=== PATIENT | male | born 1985 | race Caucasian/White ===

== ENCOUNTER → 2019-07-09 | Outpatient (CLI) | payer MEDICARE ==
[2019-07-09 10:54] LABS: BASO % 0.4 % (0.0-1.0); EOS # 0.1 10^3/uL (0.0-0.50); EOS % 2.5 % (0.0-3.0); HEMATOCRIT 44.3 % (42.0-52.0); HEMOGLOBIN 14.9 g/dl (13.5-17.5); LYMPH # 1.6 10^3/uL (1.5-4.5); MEAN CORPUSCULAR HEMOGLOBIN 30.7 pg (27.0-33.0); MEAN CORPUSCULAR HGB CONC 33.6 g/dl (32.0-36.5); MEAN CORPUSCULAR VOLUME 91.2 fl (80.0-96.0); MONO # 0.6 10^3/uL (0.0-0.8); MONO % 11.7 % (0.0-5.0); NEUTROPHILS # 2.9 10^3/uL (1.8-7.7); PLATELET COUNT, AUTOMATED 264 10^3/uL (150-450); RED BLOOD COUNT 4.86 10^6/uL (4.30-6.10); WHITE BLOOD COUNT 5.3 10^3/uL (4.0-10.0)
[2019-07-09 11:20] LABS: HEMOGLOBIN A1c 5.2 %
[2019-07-09 11:27] LABS: ALBUMIN 3.8 GM/DL (3.2-5.2); ALT/SGPT 157 U/L (12-78); BILIRUBIN,TOTAL 0.4 MG/DL (0.2-1.0); BLOOD UREA NITROGEN 12 MG/DL (7-18); CALCIUM LEVEL 8.8 MG/DL (8.5-10.1); CARBON DIOXIDE LEVEL 32 MEQ/L (21-32); CHLORIDE LEVEL 104 MEQ/L (98-107); CHOLESTEROL LEVEL 260 MG/DL (<200); CHOLESTEROL RISK RATIO 8.125 (<5); CREATININE FOR GFR 0.98 MG/DL (0.70-1.30); FREE T4 0.84 NG/DL (0.76-1.46); GLOMERULAR FILTRATION RATE > 60.0 (>60); GLUCOSE, FASTING 101 MG/DL (70-100); HDL CHOLESTEROL 32 MG/DL (>40); NON-HDL-C 228 MG/DL; POTASSIUM SERUM 4.3 MEQ/L (3.5-5.1); SODIUM LEVEL 141 MEQ/L (136-145); TOTAL PROTEIN 7.5 GM/DL (6.4-8.2); TRIGLYCERIDES LEVEL 445 MG/DL (<150)
== END ==
LOC: M LAB 10:27
PROVIDERS: ATTEND Physician Assistant Medical
DX: E66.9 Obesity, unspecified (principal); Z13.220 Encounter for screening for lipoid disorders; R03.0 Elevated blood-pressure reading, without diagnosis of hypertension

== ENCOUNTER → 2019-12-01 | Outpatient (CLI) | payer MEDICARE | LOC: M PLALAB 14:21 | PROVIDERS: ATTEND Physician Assistant Medical | DX: R94.5 Abnormal results of liver function studies (principal) ==

== ENCOUNTER → 2019-12-01 | Outpatient (REF) | payer MEDICARE ==
[2019-12-03 17:43] LABS: HEPATITIS B SURFACE ANTIBODY NEGATIVE (POSITIVE); HEPATITIS B SURFACE ANTIGEN NEGATIVE (NEGATIVE); HEPATITIS C VIRUS ABY INDEX < 0.0 INDEX (<0.8)
[2019-12-06 14:07] LABS: HEPATITIS A IgG TOTAL Positive (Negative); HEPATITIS C QUANTITATION HCV Not Detected IU/mL (.)
== END ==
LOC: M SFHCPLAZ 13:56
PROVIDERS: ATTEND Physician Assistant Medical
DX: R94.5 Abnormal results of liver function studies (principal); Z13.220 Encounter for screening for lipoid disorders

== ENCOUNTER 2020-02-29 14:11 | Emergency (ER) | payer MEDICARE, MEDICAID ==
[~2020-02-29] VITALS: Ht 175.3 cm; Wt 103.5 kg
[2020-02-29] MEDS ORDERED: VENL150C43 (14:17)
[2020-02-29] MEDS ORDERED: LIDOCAINE 2% MDV 20 ML VIAL SC ONE (14:30)
[2020-02-29] MEDS ORDERED: [UNRECOGNIZED DRUG - OTHER] IM ONE (14:30)
[2020-02-29] MEDS ORDERED: DERMABOND TOPICAL SKIN ADHESIVE TOP ONE (15:00)
[2020-02-29 15:03] VITALS: BP 134/95
== END 2020-02-29 15:13 | disposition home or self-care (01) ==
LOC: M ED 14:11
DX: S61.220A Laceration with foreign body of right index finger without damage to nail, initial encounter (principal); W26.8XXA Contact with other sharp object(s), not elsewhere classified, initial encounter; Y92.019 Unspecified place in single-family (private) house as the place of occurrence of the external cause

== ENCOUNTER → 2020-04-28 | Outpatient (REF) | payer MEDICARE, MEDICAID ==
[~2020-04-28] MED LIST: VENL150C43
[2020-04-28 18:04] LABS: ALBUMIN 4.2 GM/DL (3.2-5.2); ALT/SGPT 90 U/L (12-78); BILIRUBIN,TOTAL 0.5 MG/DL (0.2-1.0); BLOOD UREA NITROGEN 12 MG/DL (7-18); CALCIUM LEVEL 9.1 MG/DL (8.5-10.1); CARBON DIOXIDE LEVEL 29 MEQ/L (21-32); CHLORIDE LEVEL 104 MEQ/L (98-107); CHOLESTEROL LEVEL 241 MG/DL (<200); CHOLESTEROL RISK RATIO 7.774 (<5); CREATININE FOR GFR 0.97 MG/DL (0.70-1.30); GLOMERULAR FILTRATION RATE > 60.0 (>60); GLUCOSE, FASTING 85 MG/DL (70-100); HDL CHOLESTEROL 31 MG/DL (>40); NON-HDL-C 210 MG/DL; POTASSIUM SERUM 4.7 MEQ/L (3.5-5.1); SODIUM LEVEL 140 MEQ/L (136-145); TOTAL PROTEIN 8.2 GM/DL (6.4-8.2); TRIGLYCERIDES LEVEL 631 MG/DL (<150)
== END ==
LOC: M SFHCPLAZ 14:42
DX: Z00.00 Encounter for general adult medical examination without abnormal findings (principal); Z79.899 Other long term (current) drug therapy
CPT/HCPCS: 36415; 80053; 80061; 83036; G0463

== ENCOUNTER → 2020-05-12 | Outpatient (CLI) | payer MEDICARE, MEDICAID ==
[2020-05-12 14:14] LABS: INR 0.99; PROTHROMBIN TIME 12.8 SECONDS (11.8-14.0)
[2020-05-12 14:18] LABS: THYROID STIMULATING HORMONE 1.57 uIU/ML (0.358-3.740)
[2020-05-13 17:07] LABS: ANTI-MITOCHONDRIAL ANTIBODY <20.0 Units (0.0-20.0); ANTINUCLEAR ANTIBODIES DIRECT Negative (Negative); CERULOPLASMIN 21.7 mg/dL (16.0-31.0); HEPATITIS BE ANTIGEN Negative (Negative); LIVER-KIDNEY MICROSOMAL ABY <20.1 Units (0.0-20.0)
== END ==
LOC: M PLALAB 10:21
PROVIDERS: ATTEND Internal Medicine
DX: R74.0 Nonspecific elevation of levels of transaminase and lactic acid dehydrogenase [LDH] (principal); E78.1 Pure hyperglyceridemia; Z79.899 Other long term (current) drug therapy

== ENCOUNTER → 2020-12-22 | Outpatient (CLI) | payer MEDICARE, MEDICAID ==
--- NOTE | 2020-12-22 18:11 | REPPI ---
INDICATION: M25.531 WRIST PAIN, RIGHT. COMPARISON: None. TECHNIQUE: Four views. FINDINGS: Four views of the right wrist demonstrate overall normal mineralization. Joint spaces are preserved. Alignment is normal. No fracture or subluxation is seen. There is a small bone island in the distal radius noted incidentally. IMPRESSION: Normal right wrist radiographs. <Electronically signed by Shivam Silva > 12/22/20 [id number]
== END ==
LOC: M PLAIMG 14:40
PROVIDERS: ATTEND Internal Medicine
DX: M25.531 Pain in right wrist (principal); Z23 Encounter for immunization
CPT/HCPCS: 73110; 90682; G0463

== ENCOUNTER → 2021-01-03 | Outpatient (CLI) | payer MEDICARE, MEDICAID ==
[2021-01-03 09:47] LABS: HEMATOCRIT 43.7 % (42.0-52.0); HEMOGLOBIN 14.6 g/dl (13.5-17.5); MEAN CORPUSCULAR HEMOGLOBIN 29.6 pg (27.0-33.0); MEAN CORPUSCULAR HGB CONC 33.4 g/dl (32.0-36.5); MEAN CORPUSCULAR VOLUME 88.5 fl (80.0-96.0); PLATELET COUNT, AUTOMATED 328 10^3/uL (150-450); RED BLOOD COUNT 4.94 10^6/uL (4.30-6.10); WHITE BLOOD COUNT 5.1 10^3/uL (4.0-10.0)
[2021-01-03 10:34] LABS: ALBUMIN 4.1 GM/DL (3.2-5.2); ALT/SGPT 94 U/L (12-78); BILIRUBIN,TOTAL 0.5 MG/DL (0.2-1.0); BLOOD UREA NITROGEN 16 MG/DL (7-18); CALCIUM LEVEL 9.1 MG/DL (8.5-10.1); CARBON DIOXIDE LEVEL 28 MEQ/L (21-32); CHLORIDE LEVEL 105 MEQ/L (98-107); CHOLESTEROL LEVEL 202 MG/DL (<200); CHOLESTEROL RISK RATIO 5.941 (<5); CREATININE FOR GFR 1.01 MG/DL (0.70-1.30); GLOMERULAR FILTRATION RATE > 60.0 (>60); GLUCOSE, FASTING 107 MG/DL (70-100); HDL CHOLESTEROL 34 MG/DL (>40); IRON (FE) 140 UG/DL (65-175); LDL CHOLESTEROL 131 MG/DL (<100); NON-HDL-C 168 MG/DL; PERCENT SATURATION 37.4 % (19.7-50.0); POTASSIUM SERUM 4.6 MEQ/L (3.5-5.1); SODIUM LEVEL 139 MEQ/L (136-145); TOTAL IRON BINDING CAPACITY 374 UG/DL (250-450); TOTAL PROTEIN 7.5 GM/DL (6.4-8.2); TRIGLYCERIDES LEVEL 183 MG/DL (<150)
[2021-01-03 10:35] LABS: FERRITIN 146 NG/ML (26-388)
[2021-01-04 20:11] LABS: ANTI-MITOCHONDRIAL ANTIBODY <20.0 Units (0.0-20.0); ANTINUCLEAR ANTIBODIES DIRECT Negative (Negative); CERULOPLASMIN 24.2 mg/dL (16.0-31.0)
== END ==
LOC: M LAB 09:05
PROVIDERS: ATTEND Internal Medicine
DX: R74.01 Elevation of levels of liver transaminase levels (principal); E78.1 Pure hyperglyceridemia

== ENCOUNTER 2021-02-12 23:51 | Emergency (ER) | payer MEDICARE, MEDICAID ==
[~2021-02-12] VITALS: Ht 175.3 cm; Wt 104.1 kg
[2021-02-12 23:52] VITALS: BP 168/93
[2021-02-12] MEDS ORDERED: FENO48TA7 (23:58)
[2021-02-12] MEDS ORDERED: LOSA25TA14 (23:58)
[2021-02-13] MEDS ORDERED: methocarbamoL 750 MG TAB PO ONE (00:50)
[2021-02-13] MEDS ORDERED: KETOROLAC 60MG 2ML VIAL IM ONE (00:50)
[2021-02-13] MEDS ORDERED: ROBA750T4 PO (00:54)
[2021-02-13] MEDS ORDERED: KETO10TAB PO (00:56)
== END 2021-02-13 01:18 | disposition home or self-care (01) ==
LOC: M ED 23:51
DX: M54.5 Low back pain (principal); I10 Essential (primary) hypertension; E78.5 Hyperlipidemia, unspecified; F33.9 Major depressive disorder, recurrent, unspecified; Z79.899 Other long term (current) drug therapy
CPT/HCPCS: 96372; 99282; J1885

== ENCOUNTER → 2022-01-14 | Outpatient (CLI) | payer MEDICARE, MEDICAID ==
[~2022-01-14] MED LIST changes: +FENO48TA8; +KETO10TAB PO; +LOSA25TA13; +ROBA750T4 PO
[2022-01-14 10:46] LABS: HEMOGLOBIN A1c 5.1 %
[2022-01-14 10:52] LABS: ALBUMIN 3.8 GM/DL (3.2-5.2); ALT/SGPT 84 U/L (12-78); BILIRUBIN,TOTAL 0.4 MG/DL (0.2-1.0); BLOOD UREA NITROGEN 13 MG/DL (7-18); CALCIUM LEVEL 8.8 MG/DL (8.5-10.1); CARBON DIOXIDE LEVEL 27 MEQ/L (21-32); CHLORIDE LEVEL 107 MEQ/L (98-107); CHOLESTEROL LEVEL 189 MG/DL (<200); CHOLESTEROL RISK RATIO 6.096 (<5); GLOMERULAR FILTRATION RATE > 60.0 (>60); GLUCOSE, FASTING 107 MG/DL (70-100); HDL CHOLESTEROL 31 MG/DL (>40); LDL CHOLESTEROL 116 MG/DL (<100); NON-HDL-C 158 MG/DL; POTASSIUM SERUM 4.1 MEQ/L (3.5-5.1); SODIUM LEVEL 139 MEQ/L (136-145); TOTAL PROTEIN 7.7 GM/DL (6.4-8.2); TRIGLYCERIDES LEVEL 210 MG/DL (<150)
== END ==
LOC: M LAB 09:22
PROVIDERS: ATTEND Student in an Organized Health Care Education/Training Program
DX: Z00.00 Encounter for general adult medical examination without abnormal findings (principal)

== ENCOUNTER → 2022-08-16 | Outpatient (CLI) | payer MEDICARE, MEDICAID ==
[2022-08-16 14:06] LABS: ALBUMIN 3.9 GM/DL (3.2-5.2); ALT/SGPT 65 U/L (12-78); BILIRUBIN,TOTAL 0.4 MG/DL (0.2-1.0); BLOOD UREA NITROGEN 15 MG/DL (7-18); CALCIUM LEVEL 9.2 MG/DL (8.5-10.1); CARBON DIOXIDE LEVEL 29 MEQ/L (21-32); CHLORIDE LEVEL 105 MEQ/L (98-107); CHOLESTEROL LEVEL 182 MG/DL (<200); CHOLESTEROL RISK RATIO 6.066 (<5); CREATININE FOR GFR 0.92 MG/DL (0.70-1.30); GLOMERULAR FILTRATION RATE > 60.0 (>60); GLUCOSE, FASTING 103 MG/DL (70-100); HDL CHOLESTEROL 30 MG/DL (>40); LDL CHOLESTEROL 85 MG/DL (<100); NON-HDL-C 152 MG/DL; POTASSIUM SERUM 4.7 MEQ/L (3.5-5.1); SODIUM LEVEL 138 MEQ/L (136-145); TOTAL PROTEIN 7.7 GM/DL (6.4-8.2); TRIGLYCERIDES LEVEL 334 MG/DL (<150)
[2022-08-16 15:31] LABS: HEMOGLOBIN A1c 5.2 %
== END ==
LOC: M PLALAB 10:12
PROVIDERS: ATTEND Student in an Organized Health Care Education/Training Program
DX: Z13.1 Encounter for screening for diabetes mellitus (principal); K76.0 Fatty (change of) liver, not elsewhere classified; E78.1 Pure hyperglyceridemia

== ENCOUNTER → 2023-04-07 | Outpatient (CLI) | payer MEDICARE, MEDICAID ==
[2023-04-07 09:49] LABS: HEMOGLOBIN A1c 5.1 % (4.0-6.0)
[2023-04-07 09:55] LABS: ALBUMIN 3.7 G/DL (3.2-5.2); ALKALINE PHOSPHATASE 73 U/L (46-116); ALT/SGPT 152 U/L (7.0-40); AST/SGOT 44 U/L (<34); BILIRUBIN,TOTAL 0.5 MG/DL (0.3-1.2); BLOOD UREA NITROGEN 21 MG/DL (9-23); CALCIUM LEVEL 8.9 MG/DL (8.5-10.1); CARBON DIOXIDE LEVEL 26 MMOL/L (20-31); CHLORIDE LEVEL 105 MMOL/L (98-107); CHOLESTEROL LEVEL 215 MG/DL (<200); CHOLESTEROL RISK RATIO 6.39 (<5); GLOMERULAR FILTRATION RATE > 60.0 (>60); GLUCOSE, FASTING 109 MG/DL (60-100); HDL CHOLESTEROL 33.6 MG/DL (>40); LDL CHOLESTEROL 121.4 MG/DL (<100); NON-HDL-C 181.4 MG/DL; POTASSIUM SERUM 4.3 MMOL/L (3.5-5.1); SODIUM LEVEL 138 MMOL/L (136-145); TRIGLYCERIDES LEVEL 300 MG/DL (<150)
[2023-04-07 09:57] LABS: THYROID STIMULATING HORMONE 1.046 uIU/ML (0.55-4.78)
== END ==
LOC: M LAB 08:55
PROVIDERS: ATTEND Student in an Organized Health Care Education/Training Program
DX: E78.1 Pure hyperglyceridemia (principal); I10 Essential (primary) hypertension; Z13.1 Encounter for screening for diabetes mellitus; Z68.32 Body mass index [BMI] 32.0-32.9, adult; Z79.899 Other long term (current) drug therapy

== ENCOUNTER → 2023-04-18 | Outpatient (CLI) | payer MEDICARE, MEDICAID ==
[2023-04-18 09:25] LABS: HEMATOCRIT 43.7 % (42.0-52.0); MEAN CORPUSCULAR HEMOGLOBIN 30.5 pg (27.0-33.0); MEAN CORPUSCULAR HGB CONC 34.3 g/dl (32.0-36.5); PLATELET COUNT, AUTOMATED 327 10^3/uL (150-450); RED BLOOD COUNT 4.91 10^6/uL (4.30-6.10); WHITE BLOOD COUNT 5.1 10^3/uL (4.0-10.0)
[2023-04-18 10:11] LABS: HEPATITIS B SURFACE ANTIGEN NEGATIVE (NEGATIVE)
[2023-04-18 10:32] LABS: HEPATITIS C VIRUS ABY INDEX < 0.0 INDEX (<0.8)
[2023-04-19 16:08] LABS: HEPATITIS A IgG TOTAL Positive (Negative); HEPATITIS C QUANTITATION HCV Not Detected IU/mL (.)
== END ==
LOC: M LAB 08:55
PROVIDERS: ATTEND Student in an Organized Health Care Education/Training Program
DX: R74.01 Elevation of levels of liver transaminase levels (principal); Z79.899 Other long term (current) drug therapy

== ENCOUNTER → 2023-05-02 | Outpatient (CLI) | payer OTHER, MEDICAID | LOC: M RAD 06:20 | PROVIDERS: ATTEND Student in an Organized Health Care Education/Training Program | DX: R74.01 Elevation of levels of liver transaminase levels (principal) ==

== ENCOUNTER → 2023-08-03 | Outpatient (CLI) | payer OTHER, MEDICAID ==
[2023-08-03 12:03] LABS: ALBUMIN 3.5 G/DL (3.2-5.2); BILIRUBIN,DIRECT 0.1 MG/DL (<0.4); BILIRUBIN,TOTAL 0.5 MG/DL (0.3-1.2); TOTAL PROTEIN 7.1 G/DL (5.7-8.2)
== END ==
LOC: M LAB 11:09
PROVIDERS: ATTEND Student in an Organized Health Care Education/Training Program
DX: K76.0 Fatty (change of) liver, not elsewhere classified (principal)

== ENCOUNTER → 2023-12-03 | Outpatient (CLI) | payer OTHER, MEDICAID ==
[2023-12-03 09:39] LABS: ALBUMIN 3.8 G/DL (3.2-5.2); BILIRUBIN,DIRECT 0.2 MG/DL (<0.4); BILIRUBIN,TOTAL 0.5 MG/DL (0.3-1.2); CHOLESTEROL RISK RATIO 6.92 (<5); HDL CHOLESTEROL 31.2 MG/DL (>40); LDL CHOLESTEROL 122.2 MG/DL (<100); NON-HDL-C 184.8 MG/DL; TOTAL PROTEIN 6.9 G/DL (5.7-8.2)
== END ==
LOC: M LAB 08:40
PROVIDERS: ATTEND Student in an Organized Health Care Education/Training Program
DX: E78.2 Mixed hyperlipidemia (principal); R74.01 Elevation of levels of liver transaminase levels; K76.0 Fatty (change of) liver, not elsewhere classified

== ENCOUNTER → 2024-05-24 | Outpatient (REF) | payer OTHER, MEDICAID | LOC: M SFHCPLAZ 18:10 | PROVIDERS: ATTEND Student in an Organized Health Care Education/Training Program | DX: E78.2 Mixed hyperlipidemia (principal); Z13.1 Encounter for screening for diabetes mellitus ==

== ENCOUNTER → 2024-05-28 | Outpatient (CLI) | payer OTHER, MEDICAID ==
[2024-05-28 12:31] LABS: HEMATOCRIT 42.8 % (42.0-52.0); MEAN CORPUSCULAR HEMOGLOBIN 30.1 pg (27.0-33.0); MEAN CORPUSCULAR HGB CONC 32.7 g/dl (32.0-36.5); PLATELET COUNT, AUTOMATED 274 10^3/uL (150-450); RED BLOOD COUNT 4.65 10^6/uL (4.30-6.10); WHITE BLOOD COUNT 5.2 10^3/uL (4.0-10.0)
[2024-05-28 12:59] LABS: ALBUMIN 3.8 G/DL (3.2-5.2); ALKALINE PHOSPHATASE 81 U/L (46-116); ALT/SGPT 59 U/L (7.0-40); AST/SGOT 24 U/L (<34); BILIRUBIN,DIRECT 0.2 MG/DL (<0.4); BILIRUBIN,TOTAL 0.7 MG/DL (0.3-1.2); BLOOD UREA NITROGEN 17 MG/DL (9-23); CALCIUM LEVEL 8.7 MG/DL (8.5-10.1); CARBON DIOXIDE LEVEL 28 MMOL/L (20-31); CHLORIDE LEVEL 105 MMOL/L (98-107); CHOLESTEROL LEVEL 133 MG/DL (<200); CHOLESTEROL RISK RATIO 4.24 (<5); CREATININE FOR GFR 0.77 MG/DL (0.70-1.30); GLOMERULAR FILTRATION RATE > 60.0 (>60); GLUCOSE, FASTING 105 MG/DL (60-100); HDL CHOLESTEROL 31.3 MG/DL (>40); HEMOGLOBIN A1c 5.1 % (4.0-6.0); LDL CHOLESTEROL 75.7 MG/DL (<100); NON-HDL-C 101.7 MG/DL; POTASSIUM SERUM 4.3 MMOL/L (3.5-5.1); SODIUM LEVEL 137 MMOL/L (136-145); TOTAL PROTEIN 6.9 G/DL (5.7-8.2); TRIGLYCERIDES LEVEL 130 MG/DL (<150)
== END ==
LOC: M LAB 11:39
DX: E78.2 Mixed hyperlipidemia (principal); Z13.1 Encounter for screening for diabetes mellitus; Z13.0 Encounter for screening for diseases of the blood and blood-forming organs and certain disorders involving the immune mechanism

== ENCOUNTER → 2025-06-06 | Outpatient (REF) | payer MEDICARE, MEDICAID | LOC: M SFHCPLAZ 20:50 | PROVIDERS: ATTEND Student in an Organized Health Care Education/Training Program | DX: Z53.9 Procedure and treatment not carried out, unspecified reason (principal) ==

== ENCOUNTER 2025-07-19 13:33 | Emergency (ER) | payer MEDICARE, MEDICAID ==
[~2025-07-19] VITALS: Ht 175.3 cm; Wt 100.0 kg
[2025-07-19] MEDS: LIDOCAINE 1% MDV 20 ML VIAL IM ONE (15:46)
[2025-07-19] MEDS: TETANUS/DIPHTH/ACEL. PERTUSSIS 0.5 ML SYR IM.IMMUN ONE (16:04)
[2025-07-19 16:21] VITALS: BP 136/74; TEMP 98.3; O2SAT 96
== END 2025-07-19 16:26 | disposition home or self-care (01) ==
LOC: M ED 13:33
DX: S61.012A Laceration without foreign body of left thumb without damage to nail, initial encounter (principal); W26.0XXA Contact with knife, initial encounter; Y92.000 Kitchen of unspecified non-institutional (private) residence as the place of occurrence of the external cause; Y93.G1 Activity, food preparation and clean up; Y99.9 Unspecified external cause status; Z23 Encounter for immunization; Z79.899 Other long term (current) drug therapy